=== PATIENT | male | born 1930 | race Caucasian/White ===

== ENCOUNTER 2017-07-04 12:31 | Emergency (ER) | payer OTHER ==
[~2017-07-04] VITALS: Ht 175.3 cm; Wt 80.7 kg
[2017-07-04 13:44] VITALS: BP 149/89
[2017-07-04] MEDS ORDERED: CRESTOR10 MG PO (13:46)
[2017-07-04] MEDS ORDERED: ELIQUIS5 MG PO (13:46)
[2017-07-04] MEDS ORDERED: COREG25 MG PO (13:46)
[2017-07-04] MEDS ORDERED: ALTACE10 MG PO (13:46)
== END 2017-07-04 15:20 | disposition home or self-care (01) ==
LOC: ER 12:31
DX: S01.01XA Laceration without foreign body of scalp, initial encounter (principal); I10 Essential (primary) hypertension; Z90.89 Acquired absence of other organs; W00.0XXA Fall on same level due to ice and snow, initial encounter; Y93.89 Activity, other specified; Y92.89 Other specified places as the place of occurrence of the external cause; Y99.8 Other external cause status